=== PATIENT | male | born 1960 | race Caucasian/White ===

== ENCOUNTER 2017-09-01 15:09 | Inpatient (IN) | payer MEDICAID ==
[~2017-09-01] VITALS: Ht 165.1 cm; Wt 57.8 kg
[~2017-09-01 15:09] MED LIST: CEPH500 PO; OLAN5TAB2 PO
[2017-09-01] MEDS ORDERED: SODIUM CHLORIDE 0.9% 1,000 ML IV ONE (15:30)
[2017-09-01 16:21] LABS: BASOPHILS % (AUTO) 0.3 % (0.0-2.0); EOSINOPHILS % (AUTO) 0.4 % (1.0-6.0); HEMATOCRIT 44.6 % (41-53); HEMOGLOBIN 15.1 g/dL (13.5-17.5); LYMPHOCYTES # (AUTO) 0.9 K/uL (1.0-4.8); LYMPHOCYTES % (AUTO) 8.9 % (22.0-44.0); MEAN CORPUSCULAR HEMOGLOBIN 31.4 pg (26.0-34.0); MEAN CORPUSCULAR HGB CONC 33.9 G/dL (31.0-37.0); MEAN CORPUSCULAR VOLUME 93 fL (80-100); MONOCYTES # (AUTO) 0.6 K/uL (0.1-1.0); MONOCYTES % (AUTO) 5.5 % (2.0-9.0); NEUTROPHILS # (AUTO) 8.7 K/uL (1.8-7.7); NEUTROPHILS % (AUTO) 84.9 % (40.0-70.0); PLATELET COUNT (AUTO) 214 K/uL (150-450); RED BLOOD CELL COUNT(AUTO) 4.81 MIL/uL (4.50-5.90); RED CELL DISTRIBUTION WIDTH 15.6 % (11.5-14.5); WHITE BLOOD COUNT (AUTO) 10.3 K/uL (4.5-11.0)
[2017-09-01 16:28] LABS: ANION GAP 6 mmol/L (8-16); CALCIUM, TOTAL 8.2 mg/dL (8.8-10.5); CARBON DIOXIDE 28 mmol/L (22-29); CHLORIDE 107 mmol/L (98-107); CREATININE 1.06 mg/dL (0.60-1.30); GLOMERULAR FILTR. RATE CALC > 60 mL/min (>60); POTASSIUM 3.5 mmol/L (3.5-5.1); SODIUM SERUM 141 mmol/L (136-145); UREA NITROGEN, BLOOD 17 mg/dL (7-18)
[2017-09-01 16:33] LABS: ALANINE AMINOTRANSFERASE 33 U/L (12-78); ALBUMIN 3.2 g/dL (3.4-5.0); ASPARTATE AMINOTRANSFERASE 25 U/L (15-37); BILIRUBIN,TOTAL 0.5 mg/dL (0.1-1.0); TOTAL PROTEIN, SERUM 6.8 g/dL (6.4-8.2)
[2017-09-01] MEDS ORDERED: DiphenhydrAMINE HCL 50 MG/ML VIAL IVP ONE (16:45)
[2017-09-01] MEDS ORDERED: LORazepam 2 MG/ML VIAL IVP ONE (16:45)
[2017-09-01 16:53] LABS: ACETAMINOPHEN < 2 mcg/mL (10-30)
[2017-09-01 17:07] LABS: SALICYLATE 1.7 mg/dL (2.8-20.0)
[2017-09-01] MEDS ORDERED: LORazepam 2 MG TABLET PO PRN (22:15)
[2017-09-01] MEDS ORDERED: HALOPERIDOL 5 MG TABLET PO PRN (22:15)
[2017-09-01] MEDS ORDERED: ZOLPIDEM TARTRATE 10 MG TABLET PO PRN (22:15)
[2017-09-02] MEDS ORDERED: DiphenhydrAMINE HCL 50 MG/ML VIAL IM ONE (08:30)
[2017-09-02] MEDS ORDERED: HALOPERIDOL LACTATE 5 MG/ML VIAL IM ONE (08:30)
[2017-09-02] MEDS ORDERED: LORazepam 2 MG/ML VIAL IM ONE (08:30)
[2017-09-02 12:23] VITALS: BP 110/80
[2017-09-02 17:57] VITALS: BP 106/78
[2017-09-02] MEDS: PALIPERIDONE 3 MG ER TABLET PO SCH (20:13)
[2017-09-03] VITALS: BP 104/73
[2017-09-03 08:20] VITALS: BP 146/86
[2017-09-03] MEDS: PALIPERIDONE 3 MG ER TABLET PO SCH ×2 (09:15→17:33)
[2017-09-03 17:00] VITALS: BP 122/73
[2017-09-04 08:10] VITALS: BP 126/70
[2017-09-04] MEDS: PALIPERIDONE 3 MG ER TABLET PO SCH ×2 (09:08→17:24)
[2017-09-04 18:25] VITALS: BP 106/75
[2017-09-05 09:07] VITALS: BP 111/74
[2017-09-05] MEDS: PALIPERIDONE 3 MG ER TABLET PO SCH (10:16)
[2017-09-05] MEDS: CHOLECALCIFEROL (VIT D3) 1,000 UNITS TABLET PO SCH (10:17)
[2017-09-05 16:58] VITALS: BP 101/67
[2017-09-05] MEDS: PALIPERIDONE 6 MG ER TABLET PO SCH (17:46)
[2017-09-06 08:14] VITALS: BP 110/58
[2017-09-06] MEDS: PALIPERIDONE 6 MG ER TABLET PO SCH ×2 (09:15→17:49)
[2017-09-06] MEDS: CHOLECALCIFEROL (VIT D3) 1,000 UNITS TABLET PO SCH (09:15)
[2017-09-06 17:48] VITALS: BP 115/77
[2017-09-07] MEDS ORDERED: PALIPERIDONE PALMITATE 234 MG/1.5 ML SYRINGE IM SCH (09:00)
[2017-09-07 09:02] VITALS: BP 129/87
[2017-09-07] MEDS: CHOLECALCIFEROL (VIT D3) 1,000 UNITS TABLET PO SCH (09:03)
[2017-09-07] MEDS: PALIPERIDONE 6 MG ER TABLET PO SCH (09:03)
[2017-09-07] MEDS ORDERED: PALI6 PO (14:39)
[2017-09-07] MEDS ORDERED: PALI234D IM (14:46)
== END 2017-09-07 15:45 | disposition home or self-care (01) | DRG 751 ==
LOC: EMS 15:10 → AHU 09-02 11:13 → 3EI 09-02 22:35
PROVIDERS: ADMIT Psychiatry & Neurology Psychiatry; ATTEND Psychiatry & Neurology Psychiatry
DX: F29 Unspecified psychosis not due to a substance or known physiological condition (principal); G35 Multiple sclerosis; B19.20 Unspecified viral hepatitis C without hepatic coma; F15.90 Other stimulant use, unspecified, uncomplicated; F12.90 Cannabis use, unspecified, uncomplicated; H40.9 Unspecified glaucoma; T40.1X1A Poisoning by heroin, accidental (unintentional), initial encounter; F17.200 Nicotine dependence, unspecified, uncomplicated; Y92.89 Other specified places as the place of occurrence of the external cause; Z59.0 Homelessness
CPT/HCPCS: 93005; 96361; 96372; 96374; 96375; 99285; G0480; G0481; J1200; J1630; J2060; J7030

== ENCOUNTER 2019-05-26 09:03 | Emergency (ER) | payer MEDICAID ==
[~2019-05-26] VITALS: Ht 162.6 cm; Wt 61.4 kg
[~2019-05-26 09:03] MED LIST changes: -CEPH500 PO; +OLAN5TAB27 PO
[2019-05-26] MEDS ORDERED: PERTUSS(ACELL),DIPH,TET VAC/PF 0.5 ML VIAL IM ONE (09:45)
[2019-05-26] MEDS ORDERED: LIDOCAINE 1% 10 ML VIAL INJ ONE (09:45)
[2019-05-26 09:58] VITALS: BP 122/86
== END 2019-05-26 10:09 | disposition left against medical advice (07) ==
LOC: EMS 09:06
DX: S01.112A Laceration without foreign body of left eyelid and periocular area, initial encounter (principal); F11.90 Opioid use, unspecified, uncomplicated; Z59.0 Homelessness; Y04.0XXA Assault by unarmed brawl or fight, initial encounter; Y93.89 Activity, other specified; Y92.89 Other specified places as the place of occurrence of the external cause; Y99.8 Other external cause status
CPT/HCPCS: 90471; 90715; 99283; J3490

== ENCOUNTER 2020-03-01 21:00 | Inpatient (IN) | payer MEDICAID ==
[~2020-03-01] VITALS: Ht 160 cm; Wt 63.0 kg
[2020-03-02] MEDS ORDERED: HALOPERIDOL 5 MG TABLET PO PRN
[2020-03-02] MEDS ORDERED: ZOLPIDEM TARTRATE 10 MG TABLET PO PRN
[2020-03-02] MEDS ORDERED: LORazepam 2 MG/ML VIAL IM ONE (03:00)
[2020-03-02] MEDS ORDERED: HALOPERIDOL LACTATE 5 MG/ML VIAL IM ONE (03:00)
[2020-03-02] MEDS ORDERED: DOCUSATE SODIUM 100 MG CAPSULE PO PRN (08:30)
[2020-03-02] MEDS ORDERED: NICOTINE 14 MG/24 HOUR PATCH TD PRN (08:30)
[2020-03-02] MEDS ORDERED: GuaiFENesin/D-METHORPHAN [SUGAR-FREE] 200-20MG/10 ML SYRUP UDCUP PO PRN (08:30)
[2020-03-02] MEDS ORDERED: LOPERAMIDE HCL 2 MG CAPSULE PO PRN (08:30)
[2020-03-02] MEDS ORDERED: ACETAMINOPHEN 325 MG TABLET PO PRN (08:30)
[2020-03-02] MEDS ORDERED: MAGNESIUM HYDROXIDE SUSPENSION 30 ML UDCUP PO PRN (08:30)
[2020-03-02] MEDS ORDERED: PETROLATUM,WHITE 28 GM JELLY TP PRN (08:30)
[2020-03-02] MEDS ORDERED: IBUPROFEN 400 MG TABLET PO PRN (08:30)
[2020-03-02] MEDS ORDERED: MAG HYDROX/AL HYDROX/SIMETH ES 30 ML SUSPENSION UDCUP PO PRN (08:30)
[2020-03-02] MEDS ORDERED: ONDANSETRON HCL 4 MG TABLET PO PRN (08:30)
[2020-03-02] MEDS ORDERED: ALBUTEROL SULFATE HFA 90 MCG/PUFF 8 GM INHALER IH PRN (08:30)
[2020-03-02] MEDS ORDERED: CloNIDine HCL 0.1 MG TABLET PO PRN (08:30)
[2020-03-02 10:32] VITALS: BP 154/99
[2020-03-02] MEDS: OLANZapine 5 MG TABLET PO SCH (17:00)
[2020-03-03] MEDS ORDERED: HALOPERIDOL LACTATE 5 MG/ML VIAL ONE (07:58)
[2020-03-03] MEDS ORDERED: LORazepam 2 MG/ML VIAL ONE (07:59)
[2020-03-03] MEDS ORDERED: DiphenhydrAMINE HCL 50 MG/ML VIAL ONE (08:00)
[2020-03-03] MEDS ORDERED: LORazepam 2 MG/ML VIAL IM ONE (08:00)
[2020-03-03] MEDS ORDERED: DiphenhydrAMINE HCL 50 MG/ML VIAL IM ONE (08:00)
[2020-03-03] MEDS ORDERED: HALOPERIDOL LACTATE 5 MG/ML VIAL IM ONE (08:00)
[2020-03-03] MEDS: OLANZapine 5 MG TABLET PO SCH ×2 (08:18→17:21)
[2020-03-03] MEDS: LORazepam 2 MG TABLET PO PRN (08:18)
[2020-03-03 16:01] VITALS: BP 100/70
[2020-03-04 01:14] VITALS: BP 105/67
[2020-03-04 06:45] VITALS: BP 106/74
[2020-03-04 08:16] VITALS: BP 109/71
[2020-03-04] MEDS: OLANZapine 5 MG TABLET PO SCH ×2 (09:12→16:47)
[2020-03-04 16:34] VITALS: BP 118/64
[2020-03-05] MEDS: OLANZapine 5 MG TABLET PO SCH ×2 (09:00→16:25)
[2020-03-05 09:12] VITALS: BP 93/62
[2020-03-05 16:09] VITALS: BP 119/79
[2020-03-06 04:06] VITALS: BP 121/81
[2020-03-06] MEDS: OLANZapine 5 MG TABLET PO SCH ×2 (08:45→16:48)
[2020-03-06 16:05] VITALS: BP 114/82
[2020-03-06] MEDS: LORazepam 2 MG TABLET PO PRN (16:48)
[2020-03-07] MEDS: OLANZapine 5 MG TABLET PO SCH ×2 (08:01→16:14)
[2020-03-07 08:05] VITALS: BP 109/73
[2020-03-07 08:29] LABS: HEMOGLOBIN A1C 5.5 % (3.8-5.6)
[2020-03-07 08:46] LABS: ALANINE AMINOTRANSFERASE 32 U/L (12-78); ALBUMIN 3.4 g/dL (3.4-5.0); ALKALINE PHOSPHATASE 68 U/L (46-116); ANION GAP 8 mmol/L (8-16); ASPARTATE AMINOTRANSFERASE 24 U/L (15-37); BILIRUBIN,TOTAL 0.4 mg/dL (0.1-1.0); CALCIUM, TOTAL 8.7 mg/dL (8.8-10.5); CARBON DIOXIDE 26 mmol/L (22-29); CHLORIDE 106 mmol/L (98-107); CHOL/HDL RATIO 5.3 (4.2-7.3); CHOLESTEROL 158 mg/dL (131-200); CREATININE 0.98 mg/dL (0.60-1.30); GLOMERULAR FILTR. RATE CALC > 60 mL/min (>60); GLUCOSE,RANDOM 93 mg/dL (70-110); HDL CHOLESTEROL 30 mg/dL (40-60); LDL CHOL (CALC.) 100 mg/dL (0-130); POTASSIUM 4.1 mmol/L (3.5-5.1); SODIUM SERUM 140 mmol/L (136-145); THYROID STIMULATING HORMONE 1.95 uIU/mL (0.36-3.74); TOTAL PROTEIN, SERUM 7.3 g/dL (6.4-8.2); TRIGLYCERIDES 141 mg/dL (15-150); UREA NITROGEN, BLOOD 24 mg/dL (7-18)
[2020-03-07 16:04] VITALS: BP 132/73
[2020-03-08 00:06] VITALS: BP 128/79
[2020-03-08 08:01] VITALS: BP 118/82
[2020-03-08] MEDS: OLANZapine 5 MG TABLET PO SCH ×2 (08:03→16:02)
[2020-03-08] MEDS: LORazepam 2 MG TABLET PO PRN (16:02)
[2020-03-08 16:13] VITALS: BP 122/70
[2020-03-09 05:41] VITALS: BP 116/82
[2020-03-09 08:02] VITALS: BP 105/61
[2020-03-09] MEDS: OLANZapine 5 MG TABLET PO SCH ×2 (08:22→16:18)
[2020-03-09 16:03] VITALS: BP 116/64
[2020-03-09] MEDS: LORazepam 2 MG TABLET PO PRN (16:18)
[2020-03-10 06:12] VITALS: BP 124/82
[2020-03-10] MEDS: OLANZapine 5 MG TABLET PO SCH ×2 (08:04→16:09)
[2020-03-10 08:13] VITALS: BP 110/60
[2020-03-10 16:01] VITALS: BP 115/66
[2020-03-10] MEDS: LORazepam 2 MG TABLET PO PRN (16:10)
[2020-03-11 07:08] VITALS: BP 110/62
[2020-03-11] MEDS: OLANZapine 5 MG TABLET PO SCH (08:23)
[2020-03-11 08:38] VITALS: BP 111/64
[2020-03-11 08:49] LABS: APPEARANCE,URINE CLEAR (CLEAR); BILIRUBIN,URINE NEGATIVE (NEGATIVE); GLUCOSE, URINE (UA) NEGATIVE (NEGATIVE); KETONES,URINE NEGATIVE (NEGATIVE); LEUKOCYTE ESTERASE ,URINE TRACE (NEGATIVE); NITRATE,URINE NEGATIVE (NEGATIVE); OCCULT BLOOD,URINE NEGATIVE (NEGATIVE); PH,URINE 5.5 (5.0-8.0); PROTEIN,URINE NEGATIVE (NEGATIVE); UROBILINOGEN,URINE 0.2 mg/dL (<=1.0)
[2020-03-11 08:56] LABS: AMPHET/METH SCREEN,URINE NEGATIVE (NEGATIVE); BARBITURATE SCREEN, URINE NEGATIVE (NEGATIVE); BENZODIAZEPINES SCREEN,URINE NEGATIVE (NEGATIVE); CANNABINOID SCREEN,URINE NEGATIVE (NEGATIVE); COCAINE SCREEN,URINE NEGATIVE (NEGATIVE); METHADONE SCREEN, URINE NEGATIVE (NEGATIVE); OPIATE SCREEN,URINE NEGATIVE (NEGATIVE)
[2020-03-11 08:57] LABS: PHENCYCLIDINE SCREEN,URINE NEGATIVE (NEGATIVE)
[2020-03-11 09:18] LABS: BACTERIA,URINE None Seen /HPF (None Seen); CALCIUM OXALATE CRYSTALS,UR Moderate /LPF (None Seen); RBC,URINE None Seen /HPF (0-2); WBC,URINE 0-2 /HPF (0-5)
== END 2020-03-11 16:00 | disposition home or self-care (01) | DRG 750 ==
LOC: EMS 21:02 → B3A 23:57
PROVIDERS: ADMIT Psychiatry & Neurology Child & Adolescent Psychiatry; ATTEND Psychiatry & Neurology Child & Adolescent Psychiatry
DX: F20.0 Paranoid schizophrenia (principal); G35 Multiple sclerosis; Z59.0 Homelessness; F15.10 Other stimulant abuse, uncomplicated; F19.10 Other psychoactive substance abuse, uncomplicated; H40.9 Unspecified glaucoma; K21.9 Gastro-esophageal reflux disease without esophagitis; F11.90 Opioid use, unspecified, uncomplicated; R03.0 Elevated blood-pressure reading, without diagnosis of hypertension; F10.10 Alcohol abuse, uncomplicated; Y90.9 Presence of alcohol in blood, level not specified
CPT/HCPCS: 80307; 83036; 84443; G0480; J1200; J1630; J2060; J3535

== ENCOUNTER 2021-02-09 19:14 | Emergency (ER) | payer MEDICAID ==
[~2021-02-09] VITALS: Ht 165.1 cm; Wt 66.0 kg
[~2021-02-09 19:14] MED LIST changes: -OLAN5TAB27 PO
[2021-02-09 20:40] LABS: BASOPHILS % (AUTO) 0.6 % (0.0-2.0); EOSINOPHILS % (AUTO) 0.6 % (1.0-6.0); HEMATOCRIT 44.3 % (41-53); HEMOGLOBIN 14.4 g/dL (13.5-17.5); LYMPHOCYTES # (AUTO) 1.1 K/uL (1.0-4.8); MEAN CORPUSCULAR HEMOGLOBIN 29.4 pg (26.0-34.0); MEAN CORPUSCULAR HGB CONC 32.5 G/dL (31.0-37.0); MEAN CORPUSCULAR VOLUME 91 fL (80-100); MONOCYTES # (AUTO) 0.6 K/uL (0.1-1.0); MONOCYTES % (AUTO) 8.8 % (2.0-9.0); NEUTROPHILS # (AUTO) 5.4 K/uL (1.8-7.7); PLATELET COUNT (AUTO) 201 K/uL (150-450); RED BLOOD CELL COUNT(AUTO) 4.89 MIL/uL (4.50-5.90); RED CELL DISTRIBUTION WIDTH 16.2 % (11.5-14.5)
[2021-02-09] MEDS ORDERED: AZITHROMYCIN 500 MG/NS 250 ML IV ONE (20:45)
[2021-02-09 20:51] LABS: ANION GAP 8 mmol/L (8-16); CALCIUM, TOTAL 9.7 mg/dL (8.8-10.5); CARBON DIOXIDE 30 mmol/L (22-29); CHLORIDE 103 mmol/L (98-107); GLOMERULAR FILTR. RATE CALC > 60 mL/min (>60); GLUCOSE,RANDOM 168 mg/dL (70-110); POTASSIUM 4.3 mmol/L (3.5-5.1); SODIUM SERUM 141 mmol/L (136-145); UREA NITROGEN, BLOOD 15 mg/dL (7-18)
[2021-02-09 20:56] LABS: ALANINE AMINOTRANSFERASE 31 U/L (12-78); ALBUMIN 3.5 g/dL (3.4-5.0); ALKALINE PHOSPHATASE 65 U/L (46-116); ASPARTATE AMINOTRANSFERASE 27 U/L (15-37); BILIRUBIN,TOTAL 0.3 mg/dL (0.1-1.0); CREATINE KINASE, TOTAL ONLY 175 U/L (39-308); TOTAL PROTEIN, SERUM 6.9 g/dL (6.4-8.2)
[2021-02-09 21:09] LABS: B-TYPE NATRIURETIC PEPTIDE 20 pg/mL (0-100)
[2021-02-09] MEDS ORDERED: AZITHROMYCIN 500 MG TABLET PO ONE (21:15)
[2021-02-10 00:42] VITALS: BP 120/87
[2021-02-10 01:07] LABS: APPEARANCE,URINE CLEAR (CLEAR); BILIRUBIN,URINE NEGATIVE (NEGATIVE); GLUCOSE, URINE (UA) NEGATIVE (NEGATIVE); KETONES,URINE NEGATIVE (NEGATIVE); LEUKOCYTE ESTERASE ,URINE NEGATIVE (NEGATIVE); NITRATE,URINE NEGATIVE (NEGATIVE); OCCULT BLOOD,URINE NEGATIVE (NEGATIVE); PROTEIN,URINE NEGATIVE (NEGATIVE); UROBILINOGEN,URINE 0.2 mg/dL (<=1.0)
[2021-02-10 01:11] LABS: AMPHET/METH SCREEN,URINE POSITIVE (NEGATIVE); BARBITURATE SCREEN, URINE NEGATIVE (NEGATIVE); BENZODIAZEPINES SCREEN,URINE NEGATIVE (NEGATIVE); CANNABINOID SCREEN,URINE POSITIVE (NEGATIVE); COCAINE SCREEN,URINE NEGATIVE (NEGATIVE); METHADONE SCREEN, URINE NEGATIVE (NEGATIVE); OPIATE SCREEN,URINE NEGATIVE (NEGATIVE)
[2021-02-10 01:12] LABS: PHENCYCLIDINE SCREEN,URINE NEGATIVE (NEGATIVE)
== END 2021-02-10 02:30 | disposition home or self-care (01) ==
LOC: EMS 19:14
DX: T40.0X1A Poisoning by opium, accidental (unintentional), initial encounter (principal); F19.90 Other psychoactive substance use, unspecified, uncomplicated; Z59.0 Homelessness; Y92.89 Other specified places as the place of occurrence of the external cause
CPT/HCPCS: 36415; 71045; 80053; 80307; 81003; 82550; 83880; 84484; 85025; 93005; 99285; A9575; G0480; J0456

== ENCOUNTER 2022-11-20 12:50 | Emergency (ER) | payer MEDICAID, OTHER ==
[~2022-11-20] VITALS: Ht 162.6 cm; Wt 60.0 kg
[2022-11-20] MEDS ORDERED: KETOROLAC TROMETHAMINE 60 MG/2 ML VIAL IM ONE (13:30)
[2022-11-20] MEDS ORDERED: HYDROCODONE/ACETAMINOPHEN 5-325 MG TABLET PO ONE (13:30)
[2022-11-20 15:22] VITALS: BP 118/79
[2022-11-20] MEDS ORDERED: IBUP-1554 PO (15:37)
[2022-11-20] MEDS ORDERED: ACET-2080 PO (15:37)
== END 2022-11-20 15:56 | disposition home or self-care (01) ==
LOC: EMS 12:52
DX: S06.0X0A Concussion without loss of consciousness, initial encounter (principal); S00.03XA Contusion of scalp, initial encounter; S00.83XA Contusion of other part of head, initial encounter; S20.221A Contusion of right back wall of thorax, initial encounter; H11.33 Conjunctival hemorrhage, bilateral; F20.9 Schizophrenia, unspecified; F17.210 Nicotine dependence, cigarettes, uncomplicated; Z59.00 Homelessness unspecified; Y04.8XXA Assault by other bodily force, initial encounter; Y93.89 Activity, other specified; Y92.89 Other specified places as the place of occurrence of the external cause; Y99.8 Other external cause status
CPT/HCPCS: 99285; 70450; 76705; 72070; 72100; 70486; 72125; 96372; J1885

== ENCOUNTER 2024-05-22 13:02 | Inpatient (IN) | payer MEDICAID, OTHER ==
[~2024-05-22] VITALS: Ht 162.6 cm; Wt 65.7 kg
[~2024-05-22 13:02] MED LIST changes: +ACET-2080 PO; +IBUP-1554 PO; -OLAN5TAB2 PO
[2024-05-22] MEDS: ONDANSETRON HCL 4 MG/2 ML VIAL IVP ONE (17:12)
[2024-05-22] MEDS: SODIUM CHLORIDE 0.9% 1,000 ML IV ONE ×2 (17:12)
[2024-05-22] MEDS: MORPHINE SULFATE 4 MG/ML SYRINGE IVP ONE (17:12)
[2024-05-22 17:35] LABS: BASOPHILS % (AUTO) 0.6 % (0.0-2.0); EOSINOPHILS % (AUTO) 0.6 % (1.0-6.0); HEMATOCRIT 48.1 % (41-53); HEMOGLOBIN 15.9 g/dL (13.5-17.5); LYMPHOCYTES # (AUTO) 1.4 K/uL (1.0-4.8); LYMPHOCYTES % (AUTO) 11.1 % (22.0-44.0); MEAN CORPUSCULAR HEMOGLOBIN 31.8 pg (26.0-34.0); MEAN CORPUSCULAR HGB CONC 33.1 G/dL (31.0-37.0); MEAN CORPUSCULAR VOLUME 96 fL (80-100); MONOCYTES # (AUTO) 0.9 K/uL (0.1-1.0); MONOCYTES % (AUTO) 6.6 % (2.0-9.0); NEUTROPHILS # (AUTO) 10.6 K/uL (1.8-7.7); NEUTROPHILS % (AUTO) 81.1 % (40.0-70.0); PLATELET COUNT (AUTO) 222 K/uL (150-450)
[2024-05-22 17:50] LABS: ANION GAP 10 mmol/L (8-16); CALCIUM, TOTAL 8.2 mg/dL (8.8-10.5); CARBON DIOXIDE 25 mmol/L (22-29); CHLORIDE 102 mmol/L (98-107); CREATININE 1.06 mg/dL (0.60-1.30); GLOMERULAR FILTR. RATE CALC > 60 mL/min (>60); GLUCOSE,RANDOM 105 mg/dL (70-110); POTASSIUM 3.9 mmol/L (3.5-5.1); SODIUM SERUM 137 mmol/L (136-145); UREA NITROGEN, BLOOD 15 mg/dL (7-18)
[2024-05-22 18:00] LABS: ALCOHOL, BLOOD (SERUM) < 3 mg/dL (0-10); LACTIC ACID 0.9 mmol/L (0.4-2.0)
[2024-05-22 18:12] LABS: TROPONIN I-HIGH SENSITIVITY 4 ng/L (<76)
[2024-05-22 18:15] LABS: ALANINE AMINOTRANSFERASE 32 U/L (12-78); ALBUMIN 3.1 g/dL (3.4-5.0); ALKALINE PHOSPHATASE 91 U/L (46-116); ASPARTATE AMINOTRANSFERASE 37 U/L (15-37); BILIRUBIN,TOTAL 1.1 mg/dL (0.1-1.0); CREATINE KINASE, TOTAL ONLY 437 U/L (39-308); LIPASE 20 U/L (16-77); TOTAL PROTEIN, SERUM 7.1 g/dL (6.4-8.2)
[2024-05-22] MEDS ORDERED: MAGNESIUM HYDROXIDE SUSPENSION 30 ML UDCUP PO PRN (21:45)
[2024-05-22] MEDS ORDERED: ZOLPIDEM TARTRATE 5 MG TABLET PO PRN (21:45)
[2024-05-22] MEDS ORDERED: ONDANSETRON HCL 4 MG/2 ML VIAL IVP PRN (21:45)
[2024-05-22] MEDS ORDERED: BISACODYL 10 MG RECTAL RECTAL SUPPOSITORY PR PRN (21:45)
[2024-05-22] MEDS: HEPARIN SODIUM,PORCINE 5,000 UNITS/ML VIAL SQ SCH (23:24)
[2024-05-22] MEDS: MORPHINE SULFATE 2 MG/ML SYRINGE IVP PRN (23:30)
[2024-05-23 00:45] VITALS: BP 104/73; PULSE 79; RESP 20; TEMP 98; O2SAT 97
[2024-05-23] MEDS: HYDROCODONE/ACETAMINOPHEN 5-325 MG TABLET PO PRN (01:32)
[2024-05-23 04:51] VITALS: BP 106/74; PULSE 64; RESP 17; TEMP 98.1; O2SAT 94
[2024-05-23 06:40] LABS: APPEARANCE,URINE CLEAR (CLEAR); BILIRUBIN,URINE NEGATIVE (NEGATIVE); COLOR,URINE YELLOW (YELLOW); GLUCOSE, URINE (UA) NEGATIVE (NEGATIVE); KETONES,URINE NEGATIVE (NEGATIVE); LEUKOCYTE ESTERASE ,URINE NEGATIVE (NEGATIVE); NITRATE,URINE NEGATIVE (NEGATIVE); OCCULT BLOOD,URINE NEGATIVE (NEGATIVE); PH,URINE 5.5 (5.0-8.0); PROTEIN,URINE NEGATIVE (NEGATIVE); SPECIFIC GRAVITIY, URINE 1.022 (1.003-1.030)
[2024-05-23 07:07] LABS: BACTERIA,URINE None Seen /HPF (None Seen); RBC,URINE None Seen /HPF (0-2); WBC,URINE None Seen /HPF (0-5)
[2024-05-23 08:12] VITALS: BP 110/72; PULSE 68; RESP 19; TEMP 98.2; O2SAT 97
[2024-05-23] MEDS: PANTOPRAZOLE SODIUM 40 MG DR TABLET PO SCH (08:40)
[2024-05-23] MEDS: DOCUSATE SODIUM 100 MG CAPSULE PO SCH (08:40)
[2024-05-23 09:48] LABS: BASOPHILS % (AUTO) 0.6 % (0.0-2.0); HEMATOCRIT 45.1 % (41-53); LYMPHOCYTES % (AUTO) 25.6 % (22.0-44.0); MEAN CORPUSCULAR HGB CONC 33.3 G/dL (31.0-37.0); MEAN CORPUSCULAR VOLUME 96 fL (80-100); MONOCYTES # (AUTO) 0.5 K/uL (0.1-1.0); NEUTROPHILS % (AUTO) 64.8 % (40.0-70.0); PLATELET COUNT (AUTO) 194 K/uL (150-450); RED BLOOD CELL COUNT(AUTO) 4.71 MIL/uL (4.50-5.90); WHITE BLOOD COUNT (AUTO) 7.8 K/uL (4.5-11.0)
[2024-05-23 09:58] LABS: ANION GAP 8 mmol/L (8-16); CALCIUM, TOTAL 7.8 mg/dL (8.8-10.5); CARBON DIOXIDE 25 mmol/L (22-29); CHLORIDE 105 mmol/L (98-107); CREATININE 1.04 mg/dL (0.60-1.30); GLOMERULAR FILTR. RATE CALC > 60 mL/min (>60); GLUCOSE,RANDOM 119 mg/dL (70-110); POTASSIUM 3.8 mmol/L (3.5-5.1); SODIUM SERUM 138 mmol/L (136-145); UREA NITROGEN, BLOOD 14 mg/dL (7-18)
[2024-05-23 16:26] VITALS: BP 108/69; PULSE 74; RESP 19; TEMP 98; O2SAT 96
[2024-05-23 21:10] VITALS: BP 121/78; PULSE 86; RESP 18; TEMP 99.1; O2SAT 93
[2024-05-23 22:51] LABS: ALCOHOL, URINE DRUG SCREEN NEGATIVE (NEGATIVE); BARBITURATE SCREEN, URINE NEGATIVE (NEGATIVE); BENZODIAZEPINES SCREEN,URINE NEGATIVE (NEGATIVE); CANNABINOID SCREEN,URINE NEGATIVE (NEGATIVE); COCAINE SCREEN,URINE NEGATIVE (NEGATIVE); METHADONE SCREEN, URINE NEGATIVE (NEGATIVE); OPIATE SCREEN,URINE POSITIVE (NEGATIVE); PHENCYCLIDINE SCREEN,URINE NEGATIVE (NEGATIVE)
[2024-05-23 22:59] LABS: AMPHET/METH SCREEN,URINE POSITIVE (NEGATIVE)
[2024-05-23 23:02] VITALS: O2SAT 92
[2024-05-24 04:17] VITALS: BP 120/76; PULSE 69; RESP 17; TEMP 98.2; O2SAT 94
[2024-05-24 07:09] LABS: BASOPHILS % (AUTO) 0.6 % (0.0-2.0); EOSINOPHILS % (AUTO) 1.2 % (1.0-6.0); HEMATOCRIT 45.8 % (41-53); HEMOGLOBIN 15.3 g/dL (13.5-17.5); LYMPHOCYTES # (AUTO) 2.5 K/uL (1.0-4.8); LYMPHOCYTES % (AUTO) 21.4 % (22.0-44.0); MEAN CORPUSCULAR HGB CONC 33.5 G/dL (31.0-37.0); MEAN CORPUSCULAR VOLUME 95 fL (80-100); MONOCYTES % (AUTO) 8.6 % (2.0-9.0); NEUTROPHILS % (AUTO) 68.2 % (40.0-70.0); PLATELET COUNT (AUTO) 187 K/uL (150-450); RED CELL DISTRIBUTION WIDTH 14.9 % (11.5-14.5); WHITE BLOOD COUNT (AUTO) 11.7 K/uL (4.5-11.0)
[2024-05-24 07:16] LABS: ANION GAP 6 mmol/L (8-16); CALCIUM, TOTAL 8.1 mg/dL (8.8-10.5); CARBON DIOXIDE 27 mmol/L (22-29); CHLORIDE 101 mmol/L (98-107); GLOMERULAR FILTR. RATE CALC > 60 mL/min (>60); GLUCOSE,RANDOM 96 mg/dL (70-110); POTASSIUM 3.9 mmol/L (3.5-5.1); SODIUM SERUM 134 mmol/L (136-145); UREA NITROGEN, BLOOD 13 mg/dL (7-18)
[2024-05-24 09:00] VITALS: BP 119/78; PULSE 82; RESP 19; TEMP 97.5; O2SAT 95
[2024-05-24] MEDS ORDERED: TRAM50TA5 PO (10:59)
[2024-05-24 17:41] VITALS: BP 123/75; PULSE 65; RESP 18; TEMP 98.1; O2SAT 96
[2024-05-24 21:03] VITALS: BP 123/77; PULSE 73; RESP 17; TEMP 98.2; O2SAT 95
[2024-05-25 04:58] VITALS: BP 126/85; PULSE 69; RESP 18; TEMP 98.3; O2SAT 93
[2024-05-25 07:37] LABS: ANION GAP 7 mmol/L (8-16); BASOPHILS % (AUTO) 1.3 % (0.0-2.0); CALCIUM, TOTAL 8.3 mg/dL (8.8-10.5); CARBON DIOXIDE 28 mmol/L (22-29); CHLORIDE 101 mmol/L (98-107); CREATININE 0.91 mg/dL (0.60-1.30); EOSINOPHILS % (AUTO) 3.8 % (1.0-6.0); GLOMERULAR FILTR. RATE CALC > 60 mL/min (>60); GLUCOSE,RANDOM 87 mg/dL (70-110); HEMATOCRIT 46.8 % (41-53); HEMOGLOBIN 15.9 g/dL (13.5-17.5); LYMPHOCYTES # (AUTO) 2.4 K/uL (1.0-4.8); LYMPHOCYTES % (AUTO) 25.6 % (22.0-44.0); MEAN CORPUSCULAR HEMOGLOBIN 32.5 pg (26.0-34.0); MEAN CORPUSCULAR VOLUME 96 fL (80-100); MONOCYTES % (AUTO) 10.5 % (2.0-9.0); NEUTROPHILS # (AUTO) 5.4 K/uL (1.8-7.7); NEUTROPHILS % (AUTO) 58.8 % (40.0-70.0); PLATELET COUNT (AUTO) 196 K/uL (150-450); POTASSIUM 4.1 mmol/L (3.5-5.1); RED BLOOD CELL COUNT(AUTO) 4.89 MIL/uL (4.50-5.90); RED CELL DISTRIBUTION WIDTH 14.7 % (11.5-14.5); SODIUM SERUM 136 mmol/L (136-145); UREA NITROGEN, BLOOD 15 mg/dL (7-18); WHITE BLOOD COUNT (AUTO) 9.2 K/uL (4.5-11.0)
[2024-05-25 10:00] VITALS: BP 116/68; PULSE 71; RESP 18; TEMP 98.2; O2SAT 93
[2024-05-25] MEDS: ACETAMINOPHEN 325 MG TABLET PO PRN (10:44)
== END 2024-05-25 13:00 | disposition home or self-care (01) | DRG 143 ==
LOC: EMS 13:02 → EDH 21:52 → 6S 05-23 00:36
PROVIDERS: ADMIT Internal Medicine; ATTEND Internal Medicine
DX: T79.7XXA Traumatic subcutaneous emphysema, initial encounter (principal); E44.0 Moderate protein-calorie malnutrition; J93.9 Pneumothorax, unspecified; S22.41XA Multiple fractures of ribs, right side, initial encounter for closed fracture; D72.829 Elevated white blood cell count, unspecified; G35 Multiple sclerosis; J98.11 Atelectasis; F20.9 Schizophrenia, unspecified; W03.XXXA Other fall on same level due to collision with another person, initial encounter; Y04.2XXA Assault by strike against or bumped into by another person, initial encounter; Z59.00 Homelessness unspecified; Z87.891 Personal history of nicotine dependence; Y92.89 Other specified places as the place of occurrence of the external cause; Y99.8 Other external cause status; Z68.24 Body mass index [BMI] 24.0-24.9, adult
CPT/HCPCS: 71045; 71101; 71250; 72192; 74150; 80048; 80076; 80307; 81001; 82550; 83605; 83690; 84484; 85025; 93005; 97116; 97163; 97530; 99285; G0378; G0480; J1644; J2270; J2405; J7030; 36415-L1; 36415-TC

== ENCOUNTER 2025-06-09 12:36 | Emergency (ER) | payer MEDICAID ==
[~2025-06-09] VITALS: Ht 177.8 cm; Wt 73.0 kg
[~2025-06-09 12:36] MED LIST changes: -ACET-2080 PO; -IBUP-1554 PO; +TRAM50TA5 PO
[2025-06-09 12:42] VITALS: BP 127/92; PULSE 115; RESP 18; TEMP 97.9; O2SAT 95
[2025-06-09] MEDS: ACETAMINOPHEN 500 MG TABLET PO ONE (13:30)
== END 2025-06-09 15:00 | disposition home or self-care (01) ==
LOC: EMS 12:36
DX: S09.90XA Unspecified injury of head, initial encounter (principal); F17.210 Nicotine dependence, cigarettes, uncomplicated; F15.90 Other stimulant use, unspecified, uncomplicated; Z59.00 Homelessness unspecified; Z79.899 Other long term (current) drug therapy; Y08.89XA Assault by other specified means, initial encounter; Y93.89 Activity, other specified; Y92.89 Other specified places as the place of occurrence of the external cause; Y99.8 Other external cause status
CPT/HCPCS: 70450; 72125; 99284